=== PATIENT | female | born 1955 | race African-American/Black ===

== ENCOUNTER 2018-03-23 13:05 | Emergency (ER) | payer BC ==
[2018-03-23] MEDS ORDERED: Ketorolac Tromethamine 30 MG/ML VIAL ONE (14:36)
[2018-03-23 15:01] LABS: Bilirubin Negative (Negative); Blood, Urine Negative (Negative); Clarity CLEAR (Clear); Glucose, Urine (Dipstick) Negative (Negative); Leukocyte Moderate (Negative); Nitrite Negative (Negative); Protein, Urine (Dipstick) Negative (Neg-Trace); Urobilinogen 0.2 mg/dL (0.2-1.0); pH, Urine 5.5 (5.0-9.0)
[2018-03-23 15:04] LABS: Bacteria/HPF None Seen HPF (None Seen); Hyaline Casts/LPF 0-3 HYALINE CAST LPF (0-3 Hyaline); Pathc Cast-AUWi Flag 0.43 (0-2.49); RBC/HPF 0-3 HPF (0-3); Squamous Epithelial 0-3 HPF (0-3)
--- NOTE | 2018-03-23 15:26 | RAD ---
PA AND LATERAL VIEWS CHEST: Date: 03/23/18 HISTORY: Cough, right-sided chest pain. FINDINGS: Comparison made with exam of 07/17/15. The heart size is normal. The aorta is tortuous. The lungs are well expanded without focal areas of c onsolidation, pneumothoraces, or pleural effusions. There are mild degenerative changes in the spine. IMPRESSION: No radiographic evidence of acute cardiopulmonary process. POS: JACK
== END 2018-03-23 15:36 | disposition home or self-care (01) ==
LOC: ERS 13:05
DX: N12 Tubulo-interstitial nephritis, not specified as acute or chronic (principal); R05 Cough; I10 Essential (primary) hypertension; E78.5 Hyperlipidemia, unspecified; F41.9 Anxiety disorder, unspecified; Z79.899 Other long term (current) drug therapy; Z79.82 Long term (current) use of aspirin
CPT/HCPCS: 71046; 81003; 81015; 96372; J1885

== ENCOUNTER 2018-07-02 21:29 | Emergency (ER) | payer SELFPAY ==
[2018-07-02 21:56] LABS: #Basophils 0.1 thou/uL (0.0-0.2); #Eosinphils 0.3 thou/uL (0.0-0.7); #Lymphocytes 3.5 thou/uL (1.20-3.40); #Monocytes 0.6 thou/uL (0.11-0.59); #Neutrophils 2.8 thou/uL (1.40-6.50); %Basophils 1.4 % (0.0-1.0); %Lymphocytes 47.4 % (21.0-51.0); %Monocytes 8.2 % (0.0-10.0); Mean Corpuscular HGB CONC 33.3 g/dL (32.0-36.0); Mean Corpuscular Hemoglobin 31.8 pg (27.0-31.0); Mean Corpuscular Volume 95.6 fL (78.0-98.0); Platelet Count 245 thou/uL (130-400); RBC Distribution Width 12.7 % (11.5-14.5); Red Blood Cell (RBC) Count 3.78 mill/uL (4.20-5.40); White Blood Cell (WBC) Count 7.3 thou/uL (4.8-10.8)
--- NOTE | 2018-07-02 22:13 | RAD ---
RADIOGRAPH CHEST ONE VIEW: DATE: 07/02/2018 HISTORY: 62-year-old female with chest pain FINDINGS: There are no airspace densities, pulmonary edema, pneumothorax, or cardiomegaly. The lateral costophr enic angles are sharp. IMPRESSION: No acute cardiopulmonary findings.
[2018-07-02 22:22] LABS: ALT (SGPT) 14 U/L (8-55); AST (SGOT) 16 U/L (5-34); Albumin 4.3 g/dL (3.4-4.8); Alkaline Phosphatase 83 U/L (40-150); Anion Gap 12 mmol/L (10-20); BUN (Urea Nitrogen) 16 mg/dL (9.8-20.1); Bilirubin, Total 0.4 mg/dL (0.2-1.2); CK (CPK) 251 U/L (29-168); Calc. Creatinine Clearance 0 mL/min (70-130); Calcium 9.6 mg/dL (7.8-10.44); Carbon Dioxide 28 mmol/L (23-31); Chloride 104 mmol/L (98-107); Estimated GFR-MDRD 81; Globulin 3.5 g/dL (2.4-3.5); Glucose 83 mg/dL (80-115); Protein, Total 7.8 g/dL (6.0-8.3); Sodium 140 mmol/L (136-145)
[2018-07-02] MEDS ORDERED: Ketorolac Tromethamine 30 MG/ML VIAL ONE (23:22)
--- NOTE | 2018-07-05 02:24 | EKG ---
Test Reason : Blood Pressure : / mmHG Vent. Rate : 076 BPM Atrial Rate : 076 BPM P-R Int : 166 ms QRS Dur : 076 ms QT Int : 384 ms P-R-T Axes : 027 025 062 degrees QTc Int : 432 ms Normal sinus rhythm Normal ECG Confirmed by KELSEA JUSTICE MD ([id number]), social media editor ELI ZAMORA ([id number]) on 07/05/2018 2:23:53 AM Referred By: Confirmed By:KELSEA JUSTICE MD
== END 2018-07-03 02:28 | disposition home or self-care (01) ==
LOC: ERS 21:29
DX: R07.89 Other chest pain (principal); E78.5 Hyperlipidemia, unspecified; I10 Essential (primary) hypertension; F41.9 Anxiety disorder, unspecified; F32.9 Major depressive disorder, single episode, unspecified; Z79.82 Long term (current) use of aspirin; Z79.899 Other long term (current) drug therapy
CPT/HCPCS: 36415; 71045; 80053; 82550; 84484; 85025; 93005; 96374; J1885

== ENCOUNTER 2019-09-09 07:49 | Outpatient (CLI) | payer MEDICARE ==
--- NOTE | 2019-09-09 10:35 | MMO ---
Bilateral MAMMO Bilat Screen [facility]. CLINICAL HISTORY: Patient is 64 years old and is seen for screening. The patient has no family history of breast cancer. The patient has no personal history of cancer. VIEWS: The views performed were: bilateral craniocaudal with tomosynthesis and bilateral mediolateral oblique with tomosynthesis. FILMS COMPARED: The present examination has been compared to prior imaging studies performed at [facility] on 07/22/2011, 08/14/2012, 01/20/2014 and 03/18/2016. This study has been interpreted with the assistance of computer-aided detection. MAMMOGRAM FINDINGS: There are no suspicious masses, suspicious calcifications, or new areas of architectural distortion. IMPRESSION: THERE IS NO MAMMOGRAPHIC EVIDENCE OF MALIGNANCY. A ROUTINE FOLLOW-UP MAMMOGRAM IN 1 YEAR IS RECOMMENDED. THE RESULTS OF THIS EXAM WERE SENT TO THE PATIENT. ACR BI-RADS Category 1 - Negative MAMMOGRAPHY NOTE: 1. A negative mammogram report should not delay a biopsy if a dominant of clinically suspicious mass is present. 2. Approximately 10% to 15% of breast cancers are not detected by mammography. 3. Adenosis and dense breasts may obscure an underlying neoplasm. Reported by: JAVID DAVIDSON MD Electonically Signed: [id number]
== END 2019-09-09 07:50 | disposition home or self-care (01) ==
LOC: BICMAMMO 07:49
PROVIDERS: ATTEND Internal Medicine
DX: Z12.31 Encounter for screening mammogram for malignant neoplasm of breast (principal)
CPT/HCPCS: 77063; 77067

== ENCOUNTER 2019-12-24 09:24 | Outpatient (CLI) | payer MEDICARE ==
--- NOTE | 2019-12-24 10:13 | RAD ---
2 VIEW CHEST: Date: 12/24/2019 INDICATION: Reactive airway disease. COMPARISON: 03/23/2018. FINDINGS: The lungs appear clear. Mild increased interstitial markings are stable from the prior exam. There is no evidence of infiltrate or effusion. No interval change from the prior study. Heart and mediastinu m unremarkable. IMPRESSION: No acute findings. POS: OFF
== END 2019-12-24 09:25 | disposition home or self-care (01) ==
LOC: BICRAD 09:24
PROVIDERS: ATTEND Internal Medicine
DX: J45.50 Severe persistent asthma, uncomplicated (principal)
CPT/HCPCS: 71046

== ENCOUNTER 2020-01-12 10:29 | Observation (INO) | payer MEDICARE ==
[2020-01-12] MEDS ORDERED: Aspirin Chewable 81 MG TAB ONE (11:39)
[2020-01-12] MEDS ORDERED: Nitroglycerin 2% Ointment 1 INCH/1 GM Packet ONE (11:39)
--- NOTE | 2020-01-12 11:40 | RAD ---
XR Chest 1 View Portable HISTORY: Chest pain COMPARISON: 12/24/2019 FINDINGS: The heart size is normal. The lungs are well expanded without focal areas of consolidation, pneumothorax or pleural effusions. IMPRESSION: No radiographic evidence of acute cardiopulmonary process.
[2020-01-12 11:53] LABS: Bilirubin Negative (Negative); Blood, Urine Negative (Negative); Clarity Clear (Clear); Glucose, Urine (Dipstick) Normal (Negative); Ketone, Urine Negative (Negative); Leukocyte 250 Leu/uL (Negative); Nitrite Negative (Negative); Protein, Urine (Dipstick) Negative (Neg-Trace); RBC/HPF 0-3 HPF (0-3); Specific Gravity, Urine 1.002 (1.002-1.036); Squamous Epithelial 0-3 HPF (0-3); Urobilinogen Normal mg/dL (Less than 2)
[2020-01-12 11:54] LABS: Bacteria/HPF 1+ HPF (None Seen)
[2020-01-12] MEDS ORDERED: cefTRIAXone\\ROCEPHIN 1 GM VIAL ONE (12:49)
[2020-01-12 13:11] LABS: #Lymphocytes 1.5 thou/uL (1.20-3.40); #Monocytes 0.4 thou/uL (0.11-0.59); #Neutrophils 4.2 thou/uL (1.40-6.50); %Basophils 0.2 % (0.0-1.0); %Eosinophils 0.6 % (0.0-10.0); %Lymphocytes 23.9 % (21.0-51.0); %Monocytes 6.9 % (0.0-10.0); %Neutrophils 68.4 % (42.0-75.0); Hemoglobin 13.7 g/dL (12.0-16.0); Mean Corpuscular HGB CONC 32.3 g/dL (32.0-36.0); Mean Corpuscular Hemoglobin 30.5 pg (27.0-31.0); Mean Corpuscular Volume 94.4 fL (78.0-98.0); Platelet Count 190 thou/uL (130-400); RBC Distribution Width 13.1 % (11.5-14.5); White Blood Cell (WBC) Count 6.1 thou/uL (4.8-10.8)
[2020-01-12 13:33] LABS: ALT (SGPT) 16 U/L (8-55); AST (SGOT) 18 U/L (5-34); Albumin 4.1 g/dL (3.4-4.8); Alkaline Phosphatase 109 U/L (40-110); Anion Gap 14 mmol/L (10-20); BUN (Urea Nitrogen) 14 mg/dL (9.8-20.1); Bilirubin, Total 0.3 mg/dL (0.2-1.2); Calc. Creatinine Clearance 0 mL/min (70-130); Calcium 9.7 mg/dL (7.8-10.44); Carbon Dioxide 20 mmol/L (23-31); Chloride 107 mmol/L (98-107); Estimated GFR-MDRD 82; Globulin 4.6 g/dL (2.4-3.5); Glucose 107 mg/dL (80-115); Lipase 22 U/L (8-78); Potassium 3.9 mmol/L (3.5-5.1); Protein, Total 8.7 g/dL (6.0-8.3); Sodium 137 mmol/L (136-145)
--- NOTE | 2020-01-12 14:08 | PDOC.HHP ---
Hospitalist HPI - History of Present Illness chest pain History of Present Illness: PCP: Kayla The patient is a 64-year-old female with past medical history significant for HTN, HLD and asthma/bronchitis that presents to the emergency department for the above complaint. Patient reports intermittent chest pain over the past 2 days. She reports this morning at approximately 9:00, developing acute chest pain. She reports she was cleaning her refrigerator and was hunched over at onset of symptoms. She says the chest pain is located mid-chest, non radiating, described as dull pressure, moderate intensity, exacerbated and relieved by nothing. She reports associated heart palpitations, shortness of breath and nausea. She also reports over the last couple days having dizziness. She says that she felt like she was going to "pass out". She denies that the room was spinning. She denies any headache, neck stiffness or fevers. No known sick contacts. Denies any recent fall or trauma. Denies any changes to her home medications. Denies any recent surgeries. Her sister reports elevated blood pressure readings at home, reporting 180s/100s. She reports that she takes her home antihypertensives as prescribed. She is not compliant with her cholesterol medications however, stating that she stopped taking it a while back. She denies any history of DVT/PE. Denies any history of any illicit drug use. She does have a history of asthma/bronchitis, recently given nebulizers as needed. She denies any recent wheezing, cough or sputum. She also reports dysuria, urinary frequency and left flank pain for the past couple days. Approximately 6 weeks ago, she had left flank US, which was negative for kidney stones per patient. Reports was treated for urinary tract infection with unknown antibiotics at that time. She denies any hematuria, nausea, vomiting, hematochezia or melena or fever/chills. ED Course: VITAL SIGNS FriJan 12, 2020 10:31 BIB Finley Dannette BP: 134/74, Pulse: 100, Resp: 20, Temp: 97.9 (Oral), O2 sat: 100 on (Room Air), Time: 01/12/2020 10:31. VITAL SIGNS FriJan 12, 2020 10:47 BIB Reagan Jenifer BP: 160/124, MAP: 136, Pulse: 103, Resp: 16 (Non-Labored), O2 sat: 97 on (Room Air), Time: 01/12/2020 10:47. VITAL SIGNS FriJan 12, 2020 11:38 BIB Reagan Jenifer BP: 131/77, MAP: 95, Pulse: 97, Resp: 19 (Non-Labored), Pain: 8, O2 sat: 96 on (Room Air), Time: 01/12/2020 11:38. VITAL SIGNS FriJan 12, 2020 12:56 BIB Reagan Jenifer BP: 142/79, MAP: 100, Pulse: 104, Resp: 17 (Non-Labored), O2 sat: 100 on (Room Air), Time: 01/12/2020 12:56. Medication administration: cefTRIAXone injection 1 g IV Piggy Back Given 12:53 01/12/2020 Nitro-Bid transdermal 1 inch Topical Given 11:46 01/12/2020 aspirin oral 324 mg Oral Given 11:45 01/12/2020 Hospitalist ROS - Review of Systems All other systems reviewed; all pertinent +/- noted in HPI/Subj - Medication Medications: aspirin oral TABLET : Strength - 81 mg : ORAL Patient Dose: once a day. amLODIPine TABLET : Strength - 10 mg : ORAL Patient Dose: 10 mg Oral once a day. hydrALAZINE oral tablet : Strength - 50 mg : ORAL Patient Dose: 3 times a day. Allergies: levaquin Hospitalist History - Past Medical History Source: patient, family, RN notes reviewed Cardiac: reports: HTN, Hyperlipidemia (Noncompliant) Pulmonary: reports: asthma, bronchitis Psych: reports: Anxiety, Depression (Female in no acute distress 17) - Past Surgical History Past Surgical History: reports: Cholecystectomy ( right), Hysterectomy, Other ( heart regular rate and rhythm no murmurs tendon repair right foot crackles or rhonchi) - Family History Family History: reports: cardiac disorder ( mother [place] age 53) - Social History Smoking Status: Former smoker (Quit greater than 30 years ago) Alcohol: reports: None Drugs: reports: none Living Situation: With Family Occupation: Retired Activity level: independent ambulation (Discoloration skin) - Exam General Appearance: NAD, awake alert. negative: ill appearing General - other findings: Obese body habitus Eye: anicteric sclera ENT: normocephalic atraumatic Neck: supple, symmetric Heart: RRR, no murmur, no gallops, no rubs, normal peripheral pulses Respiratory: CTAB, no wheezes, no rales, no ronchi, normal chest expansion, no tachypnea Gastrointestinal: soft, non-tender, non-distended, normal bowel sounds, no guarding, no rigidity Gastrointestinal - other findings: Left CVA tenderness, mild Extremities: no cyanosis, no edema Skin: no rashes Neurological: no weakness, no focal deficits Musculoskeletal: normal tone, normal strength Psychiatric: normal affect, A&O x 3 Hospitalist Results - Labs Result Diagrams: 01/12/20 12:58 01/12/20 12:58 Lab results: WBC 6.1 thou/uL (4.8-10.8) 01/12/20 12:58 Hgb 13.7 g/dL (12.0-16.0) 01/12/20 12:58 Hct 42.5 % (36.0-47.0) 01/12/20 12:58 MCV 94.4 fL (78.0-98.0) 01/12/20 12:58 Plt Count 190 thou/uL (130-400) 01/12/20 12:58 Neutrophils % 68.4 % (42.0-75.0) 01/12/20 12:58 Sodium 137 mmol/L (136-145) 01/12/20 12:58 Potassium 3.9 mmol/L (3.5-5.1) 01/12/20 12:58 Chloride 107 mmol/L (98-107) 01/12/20 12:58 Carbon Dioxide 20 mmol/L (23-31) L 01/12/20 12:58 BUN 14 mg/dL (9.8-20.1) 01/12/20 12:58 Creatinine 0.84 mg/dL (0.6-1.1) 01/12/20 12:58 Glucose 107 mg/dL (80-115) 01/12/20 12:58 Calcium 9.7 mg/dL (7.8-10.44) 01/12/20 12:58 Total Bilirubin 0.3 mg/dL (0.2-1.2) 01/12/20 12:58 AST 18 U/L (5-34) 01/12/20 12:58 ALT 16 U/L (8-55) 01/12/20 12:58 Alkaline Phosphatase 109 U/L (40-110) 01/12/20 12:58 Troponin I Less than 0.010 ng/mL (< 0.028) 01/12/20 12:58 B-Natriuretic Peptide 12.0 pg/mL (0-100) 01/12/20 12:58 Serum Total Protein 8.7 g/dL (6.0-8.3) H 01/12/20 12:58 Albumin 4.1 g/dL (3.4-4.8) 01/12/20 12:58 Lipase 22 U/L (8-78) 01/12/20 12:58 Urine Ketones Negative mg/dL (Negative) 01/12/20 11:35 Urine Blood Negative (Negative) 01/12/20 11:35 Urine Nitrite Negative (Negative) 01/12/20 11:35 Ur Leukocyte Esterase 250 Lamonte/uL (Negative) A 01/12/20 11:35 Urine RBC 0-3 HPF (0-3) 01/12/20 11:35 Urine WBC 4-6 HPF (0-3) A 01/12/20 11:35 Ur Squamous Epith Cells 0-3 HPF (0-3) 01/12/20 11:35 Urine Bacteria 1+ HPF (None Seen) A 01/12/20 11:35 - EKG Interpretation EK lead EKG interpreted by Emergency Department Physician at time of study, 12 lead EKG shows, sinus tachycardia, Rate (beats per minute): 102, with no ectopics, Conduction normal, ST segments normal, T waves normal, [place] normal, Clinical impression: Normal EKG. - Radiology Interpretation Chest x-ray Status: report reviewed by me Additional Comment: No acute process Hospitalist H&P A/P - Problem (1) Chest pain Code(s): R07.9 - CHEST PAIN, UNSPECIFIED Status: Acute (2) UTI (urinary tract infection) Status: Acute (3) Hypertension Code(s): I10 - ESSENTIAL (PRIMARY) HYPERTENSION Status: Chronic (4) Hyperlipidemia Code(s): E78.5 - HYPERLIPIDEMIA, UNSPECIFIED Status: Chronic (5) Anxiety and depression Code(s): F41.9 - ANXIETY DISORDER, UNSPECIFIED; F32.9 - MAJOR DEPRESSIVE DISOR MIKEL, SINGLE EPISODE, UNSPECIFIED Status: Chronic - Plan Plan: 64/F with PMH HTN, HLD, asthma/bronchitis presents for chest pain and dysuria/urinary frequency. Admit telemetry floor, observation status. Expected length of stay less than 2 midnights. Presented tachycardic with NL BP, RR, SPO2, afebrile. EKG sinus tachycardia, nonspecific EKG. CXR no acute changes. Troponin negative, BNP 12, DD 0.34 UA 4-6 WBC, leuks 250, 1+ bacteria #Chest pain Heart score 6. Symptoms resolved with nitroglycerin. Continue aspirin, start statin. Trend troponins, check TSH, FLP, mag level Echocardiogram N.p.o. at midnight [employer] tomorrow. #UTI Mild CVA tenderness on exam,, afebrile, no leukocytosis. Continue Rocephin. Send urine culture. #Hypertension Presented normotensive. Takes Norvasc, hydralazine at home. Restart home medications when reconciled by nursing. Monitor BP #Hyperlipidemia Took pravastatin at home, discontinued herself. Check FLP. Start high intensity statin. #Anxiety and depression Denies SI/HI Does not take any medication for this. SCDs for DVT prophylaxis. Pepcid for GI prophylaxis. Full code. Discussed the case with Dr. Keane.
[2020-01-12] MEDS ORDERED: Calcium Carbonate 500 MG ChewTAB PO PRN (14:46)
[2020-01-12] MEDS ORDERED: Senokot S 8.6-50 MG TAB PO PRN (14:46)
[2020-01-12] MEDS ORDERED: Acetaminophen 325 MG TAB PO PRN (14:46)
[2020-01-12] MEDS ORDERED: Ondansetron ODT 4 MG TAB PO PRN (14:46)
[2020-01-12 18:51] LABS: Troponin I Less than 0.010 ng/mL (< 0.028)
[2020-01-12 21:30] VITALS: BMI 37.3
[2020-01-12] MEDS: Famotidine 20 MG TAB PO SCH (21:47)
[2020-01-12] MEDS: Atorvastatin Calcium 40 MG TAB PO SCH (21:47)
[2020-01-12] MEDS: Nitroglycerin 2% Ointment 1 INCH/1 GM Packet TOP SCH (21:47)
[2020-01-12] MEDS ORDERED: ALPRAZolam 0.25 MG TAB PO SCH (22:15)
[2020-01-13 04:52] LABS: #Basophils 0.1 thou/uL (0.0-0.2); #Eosinphils 0.3 thou/uL (0.0-0.7); #Lymphocytes 2.5 thou/uL (1.20-3.40); #Monocytes 0.5 thou/uL (0.11-0.59); #Neutrophils 3.2 thou/uL (1.40-6.50); %Basophils 1.6 % (0.0-1.0); %Eosinophils 4.3 % (0.0-10.0); %Lymphocytes 38.1 % (21.0-51.0); %Monocytes 7.9 % (0.0-10.0); %Neutrophils 48.1 % (42.0-75.0); Hemoglobin 11.9 g/dL (12.0-16.0); Mean Corpuscular HGB CONC 32.2 g/dL (32.0-36.0); Mean Corpuscular Hemoglobin 31.6 pg (27.0-31.0); Mean Corpuscular Volume 97.8 fL (78.0-98.0); Mean Platelet Volume 8.9 fL (7.4-10.4); Platelet Count 231 thou/uL (130-400); RBC Distribution Width 13.3 % (11.5-14.5); Red Blood Cell (RBC) Count 3.78 mill/uL (4.20-5.40); White Blood Cell (WBC) Count 6.6 thou/uL (4.8-10.8)
[2020-01-13 05:02] LABS: Anion Gap 13 mmol/L (10-20); BUN (Urea Nitrogen) 17 mg/dL (9.8-20.1); Calc. Creatinine Clearance 116 mL/min (70-130); Carbon Dioxide 23 mmol/L (23-31); Cardiac Risk 6.1 (Less than 4.5); Chloride 107 mmol/L (98-107); Cholesterol 226 mg/dl (< 200 Desired); Estimated GFR-MDRD 87; Glucose 90 mg/dL (80-115); HDL Cholesterol 37 mg/dL (>60 Neg Risk); LDL Cholesterol, Calculated 142 mg/dL; Potassium 3.8 mmol/L (3.5-5.1); Sodium 139 mmol/L (136-145); Triglycerides 236 mg/dL (Less than 150)
[2020-01-13] MEDS: Nitroglycerin 2% Ointment 1 INCH/1 GM Packet TOP SCH ×3 (06:21→20:28)
--- NOTE | 2020-01-13 07:12 | PDOC.HOSPP ---
- Subjective Encounter Date: 01/13/20 Encounter Time: 08:44 Subjective: Patient seen and examined. No new complaints. No overnight events. Patient says she slept really well and is very thankful. She denies any chest pain, heart palps., light headedness, SOB, abdominal pain, N/V or dysuria. We discussed her lab results. 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 Patient had no further questions. - Objective Vital Signs & Weight: Vital Signs (12 hours) Temp Pulse Resp BP BP Pulse Ox 01/13/20 03:28 98.2 F 74 16 144/63 H 94 L 01/12/20 19:45 97.5 F L 88 18 144/78 H 98 Weight Weight 231 lb 9.6 oz I&O: 01/12/20 01/13/20 01/14/20 06:59 06:59 06:59 Intake Total 370 Balance 370 Result Diagrams: 01/13/20 03:51 01/13/20 03:51 Additional Labs: Accuchecks 01/12/20 20:13 POC Glucose 112 H Hospitalist ROS - Review of Systems Constitutional: denies: fever, chills Respiratory: denies: cough, shortness of breath, hemoptysis Cardiovascular: denies: chest pain, palpitations, edema, light headedness Gastrointestinal: denies: nausea, vomiting, abdominal pain, diarrhea, melena, hematochezia Genitourinary: denies: hematuria Neurological: denies: weakness, incoordination, change in speech All other systems reviewed; all pertinent +/- noted in HPI/Subj - Medication Medications: Active Medications Generic Name Dose Route Start Last Admin Trade Name Murphyq PRN Reason Stop Dose Admin Atorvastatin Calcium 40 mg 01/12/20 21:00 01/12/20 21:47 Atorvastatin Calcium 40 Mg Tab PO 40 mg HS YELITZA Administration Famotidine 20 mg 01/12/20 21:00 01/12/20 21:47 Famotidine 20 Mg Tab PO 20 mg BID YELITZA Administration Nitroglycerin 0.5 inch 01/12/20 22:00 01/13/20 06:21 Nitroglycerin 2% Ointment 1 Inch/1 Gm Packet TOP Not Given Q8HR YELITZA - Exam General Appearance: NAD, awake alert Eye: anicteric sclera Neck: supple, symmetric Heart: RRR, no murmur, no gallops, no rubs, normal peripheral pulses Respiratory: CTAB, no wheezes, no rales, no ronchi, normal chest expansion Gastrointestinal: soft, non-tender, normal bowel sounds, no guarding, no rigidity Extremities: no cyanosis, no edema Neurological: no focal deficits Psychiatric: normal affect, A&O x 3 Hosp A/P (1) Chest pain Code(s): R07.9 - CHEST PAIN, UNSPECIFIED Status: Acute (2) UTI (urinary tract infection) Status: Acute (3) Hypertension Code(s): I10 - ESSENTIAL (PRIMARY) HYPERTENSION Status: Chronic (4) Hyperlipidemia Code(s): E78.5 - HYPERLIPIDEMIA, UNSPECIFIED Status: Chronic (5) Anxiety and depression Code(s): F41.9 - ANXIETY DISORDER, UNSPECIFIED; F32.9 - MAJOR DEPRESSIVE DISORDER, SINGLE EPISODE, UNSPECIFIED Status: Chronic - Plan 64/F with PMH HTN, HLD, asthma/bronchitis presents for chest pain and dysuria/urinary frequency. Admit telemetry floor, observation status. Expected length of stay less than 2 midnights. Presented tachycardic with NL BP, RR, SPO2, afebrile. EKG sinus tachycardia, nonspecific EKG. CXR no acute changes. Troponin negative, BNP 12, DD 0.34 UA 4-6 WBC, leuks 250, 1+ bacteria #Chest pain Heart score 6. troponins flat. No EKG changes through the night. Continue aspirin, start statin. 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 #UTI Asymptomatic last night. UCX preliminary mixed gram neg. 25,000-50,000 Continue rocephin. #Hypertension BP 144/63 today. Continue Norvasc, hydralazine Monitor BP #Hyperlipidemia chol 226, Tri 236, LDL 142, HDL 37 Continue atorvastatin. #Anxiety and depression Denies SI/HI No home meds. SCDs for DVT prophylaxis. Pepcid for GI prophylaxis. Full code. Discussed the case with Dr. Keane.
[2020-01-13 11:33] LABS: SARS-CoV-2 MS2 Positive; SARS-CoV-2 N Gene Negative; SARS-CoV-2 S Gene Negative; SARS-CoV-2 by NAA Not Detected (NotDetected); SARS-CoV-2 orf1ab Negative
[2020-01-13] MEDS ORDERED: Regadenoson 0.4 MG/5 ML SYRINGE ONE (14:08)
[2020-01-13] MEDS: Famotidine 20 MG TAB PO SCH ×2 (14:23→20:28)
[2020-01-13] MEDS: cefTRIAXone\\ROCEPHIN 1 GM in Sodium Chloride 0.9% 100 ML IVPB SCH (14:24)
[2020-01-13] MEDS: Aspirin 81 mg Enteric Coated Tablet PO SCH (14:24)
[2020-01-13] MEDS: Atorvastatin Calcium 40 MG TAB PO SCH (20:28)
[2020-01-13] MEDS ORDERED: ALPRAZolam 0.25 MG TAB PO SCH (21:30)
[2020-01-14 04:07] LABS: #Basophils 0.1 thou/uL (0.0-0.2); #Eosinphils 0.4 thou/uL (0.0-0.7); #Lymphocytes 2.5 thou/uL (1.20-3.40); #Monocytes 0.6 thou/uL (0.11-0.59); #Neutrophils 2.3 thou/uL (1.40-6.50); %Basophils 1.4 % (0.0-1.0); %Monocytes 10.9 % (0.0-10.0); %Neutrophils 38.7 % (42.0-75.0); Hemoglobin 11.7 g/dL (12.0-16.0); Mean Corpuscular HGB CONC 33.7 g/dL (32.0-36.0); Mean Corpuscular Hemoglobin 32.6 pg (27.0-31.0); Mean Corpuscular Volume 96.8 fL (78.0-98.0); Mean Platelet Volume 8.6 fL (7.4-10.4); Platelet Count 230 thou/uL (130-400); RBC Distribution Width 13.1 % (11.5-14.5); Red Blood Cell (RBC) Count 3.58 mill/uL (4.20-5.40); White Blood Cell (WBC) Count 5.8 thou/uL (4.8-10.8)
[2020-01-14 04:25] LABS: Anion Gap 12 mmol/L (10-20); BUN (Urea Nitrogen) 16 mg/dL (9.8-20.1); Calc. Creatinine Clearance 122 mL/min (70-130); Calcium 8.8 mg/dL (7.8-10.44); Carbon Dioxide 22 mmol/L (23-31); Chloride 107 mmol/L (98-107); Estimated GFR-MDRD Greater than 90; Glucose 89 mg/dL (80-115); Sodium 137 mmol/L (136-145)
[2020-01-14] MEDS: Nitroglycerin 2% Ointment 1 INCH/1 GM Packet TOP SCH ×2 (05:50→13:01)
--- NOTE | 2020-01-14 08:35 | PDOC.HOSPP ---
- Subjective Encounter Date: 01/14/20 Encounter Time: 08:34 Subjective: Patient seen and examined. No new complaints. No overnight events. Denies any chest pain, heart palpitations, light headedness, SOB, cough or hemoptysis. Had BM today. 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 - Objective Vital Signs & Weight: Vital Signs (12 hours) Temp Pulse Resp BP Pulse Ox 01/14/20 07:17 97.8 F 73 17 132/61 98 01/14/20 03:37 98.4 F 67 16 140/65 97 01/14/20 00:00 65 18 Weight Weight 231 lb 9.6 oz I&O: 01/13/20 01/14/20 01/15/20 06:59 06:59 06:59 Intake Total 370 820 Balance 370 820 Result Diagrams: 01/14/20 03:32 01/14/20 03:32 Hospitalist ROS - Review of Systems Constitutional: denies: fever, chills Respiratory: denies: cough, shortness of breath, hemoptysis Cardiovascular: denies: chest pain, palpitations, paroxysmal noc. dyspnea, edema, light headedness Gastrointestinal: denies: nausea, vomiting, abdominal pain, diarrhea, constipation Genitourinary: denies: dysuria, hematuria Musculoskeletal: denies: back pain All other systems reviewed; all pertinent +/- noted in HPI/Subj - Medication Medications: Active Medications Generic Name Dose Route Start Last Admin Trade Name Freq PRN Reason Stop Dose Admin Aspirin 81 mg 01/13/20 09:00 01/13/20 14:24 Aspirin 81 Mg Enteric Coated Tablet PO 81 mg DAILY YELITZA Administration Atorvastatin Calcium 40 mg 01/12/20 21:00 01/13/20 20:28 Atorvastatin Calcium 40 Mg Tab PO 40 mg HS YELITZA Administration Famotidine 20 mg 01/12/20 21:00 01/13/20 20:28 Famotidine 20 Mg Tab PO 20 mg BID YELITZA Administration Ceftriaxone Sodium 1 gm/ 100 mls @ 200 mls/hr 01/13/20 13:00 01/13/20 14:24 Sodium Chloride IVPB 100 mls Q24HR YELITZA Administration Nitroglycerin 0.5 inch 01/12/20 22:00 01/14/20 05:50 Nitroglycerin 2% Ointment 1 Inch/1 Gm Packet TOP Not Given Q8HR YELITZA - Exam General Appearance: NAD, awake alert. negative: ill appearing Eye: anicteric sclera ENT: normocephalic atraumatic Neck: symmetric Heart: RRR, no murmur, no gallops, no rubs, normal peripheral pulses Respiratory: CTAB, no wheezes, no rales, no ronchi, normal chest expansion, no tachypnea Gastrointestinal: soft, non-tender, normal bowel sounds, no guarding, no rigidity Extremities: no cyanosis, no edema Psychiatric: normal affect, A&O x 3 Hosp A/P (1) Chest pain Code(s): R07.9 - CHEST PAIN, UNSPECIFIED Status: Acute (2) UTI (urinary tract infection) Status: Acute (3) Hypertension Code(s): I10 - ESSENTIAL (PRIMARY) HYPERTENSION Status: Chronic (4) Hyperlipidemia Code(s): E78.5 - HYPERLIPIDEMIA, UNSPECIFIED Status: Chronic (5) Anxiety and depression Code(s): F41.9 - ANXIETY DISORDER, UNSPECIFIED; F32.9 - MAJOR DEPRESSIVE DISORDER, SINGLE EPISODE, UNSPECIFIED Status: Chronic - Plan 64/F with PMH HTN, HLD, asthma/bronchitis presents for chest pain and dysuria/urinary frequency. Admit telemetry floor, observation status. Expected length of stay less than 2 midnights. Presented tachycardic with NL BP, RR, SPO2, afebrile. EKG sinus tachycardia, nonspecific EKG. CXR no acute changes. Troponin negative, BNP 12, DD 0.34 UA 4-6 WBC, leuks 250, 1+ bacteria #Chest pain no symptoms last night Awaiting resting stress test portion. Echocardiogram EF 55-60%, mild MR and TR Continue aspirin and statin. #UTI Asymptomatic last night. UCX non hemolytic Strep 25,000-50,000 & gram negative rods < 5,000 Continue rocephin. Discharge cephalexin 3 day course. #Hypertension BP 132/61 today. Continue Norvasc, hydralazine Monitor BP #Hyperlipidemia chol 226, Tri 236, LDL 142, HDL 37 Continue atorvastatin. #Anxiety and depression Denies SI/HI No home meds. SCDs for DVT prophylaxis. Pepcid for GI prophylaxis. Full code. Discussed the case with Dr. Keane.
[2020-01-14] MEDS ORDERED: Amlodipine 5 MG TAB PO SCH (09:00)
[2020-01-14] MEDS ORDERED: hydrALAZINE 25 MG TAB PO SCH (09:00)
[2020-01-14] MEDS ORDERED: Non-Formulary Item 1 EACH (Hydralazine Hcl [Apresoline] 50 MG Tab) PO SCH (09:00)
[2020-01-14] MEDS: Aspirin 81 mg Enteric Coated Tablet PO SCH (11:36)
[2020-01-14] MEDS: Famotidine 20 MG TAB PO SCH (11:36)
[2020-01-14 11:37] VITALS: BP 163/67
[2020-01-14 11:56] VITALS: TEMP 97.6
--- NOTE | 2020-01-14 12:28 | NM ---
Radionucleotide stress and rest myocardial perfusion scan with CT attenuation correction and SPECT im aging Left ventricular wall motion evaluation and ejection fraction HISTORY: Chest pain. FINDINGS: Lexiscan protocol. There is homogeneous uptake of radiotracer throughout the left ventricul ar myocardium. No focal perfusion defect or reversibility. QGS analysis of gated SPECT images shows no focal wall motion abnormalities. Ejection fraction calcul ated at 67%. IMPRESSION : No evidence of ischemia. Normal LVEF.
[2020-01-14] MEDS: cefTRIAXone\\ROCEPHIN 1 GM in Sodium Chloride 0.9% 100 ML IVPB SCH (12:41)
--- NOTE | 2020-01-15 08:53 | DIS ---
DATE OF ADMISSION: 01/12/2020 DATE OF DISCHARGE: 01/14/2020 PCP: Dr. Garza. DIAGNOSES: 1. Chest pain. 2. Urinary tract infection. 3. Hypertension. 4. Hyperlipidemia. 5. Anxiety and depression. 6. COVID test negative. CONDITION: Stable. Examined the patient on the day of discharge along with Dr. Keane, attending MD. Vital signs are stable. The patient denies any chest pain, heart palpitations, shortness of breath, dysuria, or hematuria. S1, S2 auscultated. Lungs are clear bilaterally. CONSULTS: None. HOSPITAL COURSE: The patient is a 64-year-old female with a past medical history significant for hypertension, hyperlipidemia, asthma, bronchitis who presented to the emergency department for chest pain. In the ER, the patient presented tachycardic with normal blood pressure, normal respirations, normal SpO2 and was afebrile. EKG had sinus tachycardia, interpretation nonspecific EKG. Chest x-ray, no acute changes. Initial troponin was negative, BNP 12, D-dimer 0.34, UA 46 WBCs, 250 leukocyte esterase and 1+ bacteria. The patient was admitted up to the telemetry floor for further cardiac workup and treatment of her urinary tract infection. The patient was started on aspirin and atorvastatin. Remaining two troponins were negative. Cholesterol 226, triglycerides 236, LDL 142, HDL 37. Echocardiogram showed ejection fraction 55% to 60% with mild MR and TR. The patient underwent nuc med cardiac stress test on 01/12, which showed no focal wall motion abnormalities. Calculated ejection fraction 67%, impression was no evidence of ischemia with normal left ventricular ejection fraction. The patient was also started on Rocephin IV for her urinary tract infection. Urine culture results are beta-hemolytic Streptococcus with only 92234 to [id number] CFU/mL. The patient remained asymptomatic throughout her stay. The patient will be discharged home on oral Keflex for 3 more days. MEDICATIONS AT DISCHARGE: 1. Amlodipine. 2. Hydralazine. 3. Atorvastatin. 4. Baby aspirin. 5. Keflex. FOLLOWUP: With PCP in 7 days. DIET: Heart healthy, low sodium. ACTIVITY: As tolerated. DISPOSITION: Home. 20 minutes spent on this discharge. Job ID: [id number]
== END 2020-01-14 15:10 | disposition home or self-care (01) ==
LOC: ERS 10:29 → ERHOLD 14:11 → 2NO 19:55
PROVIDERS: ADMIT Student in an Organized Health Care Education/Training Program; ATTEND Student in an Organized Health Care Education/Training Program
DX: R07.9 Chest pain, unspecified (principal); N39.0 Urinary tract infection, site not specified; B95.0 Streptococcus, group A, as the cause of diseases classified elsewhere; I10 Essential (primary) hypertension; E78.5 Hyperlipidemia, unspecified; F41.9 Anxiety disorder, unspecified; F32.9 Major depressive disorder, single episode, unspecified; J45.909 Unspecified asthma, uncomplicated; Z20.828 Contact with and (suspected) exposure to other viral communicable diseases; Z79.82 Long term (current) use of aspirin; Z79.899 Other long term (current) drug therapy; Z87.891 Personal history of nicotine dependence; Z88.1 Allergy status to other antibiotic agents
CPT/HCPCS: 71045; 78452; 80048 ×2; 80061; 82962; 83690; 83735; 83880; 84484 ×2; 85025 ×2; 85379; 87086; 93005; 93017; 93306; 94760 ×2; 96365; 99285; A9500; U0003; 36415; 36416; 80053; 81003; 81015; 84443; 87635; G0378; J0696; J2785; J3490

== ENCOUNTER 2020-04-28 14:30 | Emergency (ER) | payer MEDICARE ==
[2020-04-28 15:12] LABS: #Basophils 0.1 thou/uL (0.0-0.2); #Eosinphils 0.8 thou/uL (0.0-0.7); #Lymphocytes 2.3 thou/uL (1.20-3.40); #Monocytes 0.4 thou/uL (0.11-0.59); #Neutrophils 1.9 thou/uL (1.40-6.50); %Basophils 1.9 % (0.0-1.0); %Lymphocytes 42.1 % (21.0-51.0); %Monocytes 6.8 % (0.0-10.0); %Neutrophils 35.3 % (42.0-75.0); Mean Corpuscular HGB CONC 32.4 g/dL (32.0-36.0); Mean Corpuscular Hemoglobin 31.5 pg (27.0-31.0); Mean Corpuscular Volume 97.1 fL (78.0-98.0); Mean Platelet Volume 8.5 fL (7.4-10.4); Platelet Count 215 thou/uL (130-400); RBC Distribution Width 13.3 % (11.5-14.5); Red Blood Cell (RBC) Count 4.14 mill/uL (4.20-5.40); White Blood Cell (WBC) Count 5.5 thou/uL (4.8-10.8)
[2020-04-28 15:32] LABS: ALT (SGPT) 18 U/L (8-55); AST (SGOT) 19 U/L (5-34); Albumin 4.1 g/dL (3.4-4.8); Alkaline Phosphatase 120 U/L (40-110); Anion Gap 17 mmol/L (10-20); BUN (Urea Nitrogen) 12 mg/dL (9.8-20.1); Bilirubin, Total 0.3 mg/dL (0.2-1.2); Calc. Creatinine Clearance 0 mL/min (70-130); Calcium 9.1 mg/dL (7.8-10.44); Carbon Dioxide 22 mmol/L (23-31); Chloride 103 mmol/L (98-107); Globulin 4.3 g/dL (2.4-3.5); Glucose 97 mg/dL (80-115); Potassium 3.6 mmol/L (3.5-5.1); Protein, Total 8.4 g/dL (5.8-8.1); Sodium 138 mmol/L (136-145)
[2020-04-28] MEDS ORDERED: Magnesium 2 GM/50 ML BAG (IN WATER) ONE (16:13)
[2020-04-28] MEDS ORDERED: Azithromycin 500 MG VIAL ONE (16:13)
[2020-04-28] MEDS ORDERED: Albuterol 200 PUFF (6.7GM INHALER) ONE (16:13)
--- NOTE | 2020-04-28 17:38 | RAD ---
CHEST TWO VIEWS: 04/28/20 INDICATION: History of cough and shortness of breath with wheezing. COMPARISON: Prior study dated 12/24/19. FINDINGS: No consolidation is evident. Heart size is normal. There is mild scoliosis. There is tortuosity of th e thoracic aorta. No acute osseous abnormality is evident. IMPRESSION: No acute cardiopulmonary abnormality. POS: BH
[2020-04-29 02:34] LABS: SARS-CoV-2 PCR by NAA Not Detected (NotDetected)
== END 2020-04-28 18:06 | disposition home or self-care (01) ==
LOC: ERS 14:30
DX: J44.1 Chronic obstructive pulmonary disease with (acute) exacerbation (principal); I10 Essential (primary) hypertension; E78.5 Hyperlipidemia, unspecified; E78.00 Pure hypercholesterolemia, unspecified; J45.909 Unspecified asthma, uncomplicated; Z79.82 Long term (current) use of aspirin; Z79.899 Other long term (current) drug therapy; Z20.822 Contact with and (suspected) exposure to COVID-19
CPT/HCPCS: 71046; 80053; 83880; 84484; 85025; 93005; U0003; U0005; 36415; 87635; J0456; J3475

== ENCOUNTER 2020-05-10 10:09 | Outpatient (CLI) | payer MEDICARE | END 2020-05-10 10:10 | disposition home or self-care (01) | LOC: BICRAD 10:09 | PROVIDERS: ATTEND Internal Medicine Critical Care Medicine | DX: R06.00 Dyspnea, unspecified (principal) | CPT/HCPCS: 71046 ==

== ENCOUNTER 2021-10-09 17:50 | Emergency (ER) | payer MEDICARE ==
[2021-10-09] MEDS ORDERED: Ketorolac Tromethamine 30 MG/ML VIAL ONE (19:00)
== END 2021-10-09 20:05 | disposition home or self-care (01) ==
LOC: ERS 17:50
DX: S39.012A Strain of muscle, fascia and tendon of lower back, initial encounter (principal); E78.5 Hyperlipidemia, unspecified; E78.00 Pure hypercholesterolemia, unspecified; I10 Essential (primary) hypertension; Z79.82 Long term (current) use of aspirin; Z79.899 Other long term (current) drug therapy; X50.0XXA Overexertion from strenuous movement or load, initial encounter
CPT/HCPCS: 96372; 99283; J1885

== ENCOUNTER 2022-02-04 08:07 | Outpatient (CLI) | payer MEDICARE | END 2022-02-04 08:08 | disposition home or self-care (01) | LOC: BICMAMMO 08:07 | PROVIDERS: ATTEND Family Medicine | DX: Z13.820 Encounter for screening for osteoporosis (principal); M85.851 Other specified disorders of bone density and structure, right thigh | CPT/HCPCS: 77080 ==

== ENCOUNTER 2023-07-11 09:49 | Outpatient (CLI) | payer MEDICARE | END 2023-07-11 09:50 | disposition home or self-care (01) | LOC: BICMAMMO 09:49 | PROVIDERS: ATTEND Family Medicine Geriatric Medicine | DX: Z12.31 Encounter for screening mammogram for malignant neoplasm of breast (principal) | CPT/HCPCS: 77063; 77067 ==

== ENCOUNTER 2023-09-19 09:50 | Outpatient (CLI) | payer MEDICARE ==
[2023-09-19] MEDS ORDERED: Iopamidol 370 76% 100 ML VIAL ONE (15:49)
== END 2023-09-19 09:51 | disposition home or self-care (01) ==
LOC: BICCT 09:50
PROVIDERS: ATTEND Student in an Organized Health Care Education/Training Program
DX: R59.0 Localized enlarged lymph nodes (principal); L73.9 Follicular disorder, unspecified
CPT/HCPCS: 71260; 82565; Q9967